=== PATIENT | male | born 1990 | race African-American/Black ===

== ENCOUNTER 2024-05-19 07:30 | Outpatient (RCR) | payer OTHER, SELFPAY ==
--- NOTE | 2024-05-03 10:39 | OT.OPPOC ---
Physical, Occupational & Speech Therapy At [facility] Dakota Feliz [id number] 1990 Visit Care Team Role Provider Type Henrry WARREN Provider Family Provider Non-Staff Primary Care Provider Address: Phone: Robin Felix Attending Provider Non-Staff Referring Provider Address: [address] [place] [address], [id number] Occupational Therapy Plan of Care OT Outpatient Adult Evaluation Start: 05/03/24 07:21 Freq: Status: Active Protocol: Document 05/03/24 08:15 USAMA (Rec: 05/03/24 07:44 USAMA [id number]) General Information - Adult Visit Information Visit Number 06/28 Plan of Care Dates 05/03/24 - 07/12/24 Insurance Information Prime, 12 visits authorized Session Time Visit Start Date 05/03/24 Visit Start Time 08:15 Visit Stop Time 09:00 Setting Treatment Setting Outpatient Care Visit Type Note Type Initial Evaluation Referral Referring Physician Robin Felix Reason for Referral Unspecified injury of extensor muscle, fascia and tendon of R middle finger Identification Identification Confirmed Yes Identification Confirmed By name, medical record Medical Information Medical History no significant Pmhx Patient Questionnaires Quick Dash- Upper Extremity Quick Dash UE Score 9.09 Quick Dash UE Impairment 1 to 19% Impaired (Score 1-19) Quick Dash- Work and Sports Modules Quick Dash W&S Score Work 18.75, Sport 25 Quick Dash Work and Sport Impairment 20 to 39% Impaired (Score 20- 39) Goals Objective Measurements Objective Measurements Architectural Administrative Assistant: R 64, 35, 41 (avg 46.7#) ; L 150, 145, 137 (avg 144#) Lateral: R 17#, L 20# Pincher: R 10#, L 18# 3 jaw: R 19#, L 24# AROM: 3rd digit +30 to 94 MP, 0 to 44 (53 passively) PIP, + 2 to 48 (50 passively) DIP Circumfrential edema measurements:R 3rd digit: at proximal end 6.3cm, 1/2 way between MP/PIP 6.4 cm, PIP 7. 1cm, 1/2 way between PIP/DIP 5 .7cm, DIP 5.4cm Treatment Treatment Issued and educated on HEP. HEP includes PROM to PIP, edema massage, and tendon glides Short Term Goals Short Term Goals 1. Pt will be I with initial HEP. 2. Pt will tolerated R passive PIP flexion to WFL for improved object manipulation. 3. Pt will increase R grey stock recorder strength to 75# to assist in work tasks. 4. Pt will increase all R pinch strengths by 3# or greater to assist in object manipulation Penitentiary Goals Fence Post Driver Goals 1. Pt will be I with advanced HEP 2. Pt will demonstrate AROM R 3rd digit to WFL for improved functional task performance. 3. Pt will increase R grey stock recorder strength to 100# to assist in work specific tasks. 4. Pt will report perceived functional improvments, rating PSFS at no more than 10 for Work/Sport components Assessment/Plan Assessment Patient Response Excellent Rehabilitation Potential Good Impairments Identified ADLs,Body Mechanics, Coordination/Dexterity, Flexibility,Functional Activities,Pain,Weakness, Posture,Range of Motion, Recreational Activities, Meaningful Activities, Stiffness Treatment Assessment Pt is 34 yo M referred to skilled OT services by due to R long finger central slip injury to PIP on 03/04/24. Per order, pt received non- operative therapy including full extension splinting with DIP free for 6 weeks initiated on 03/15/24. Pt is L hand dominant for hand writing but reports using typically using his R hand for other tasks. Pt has no significant pmhx per his reports. Pt reports he was doing a worked related PT exercise where he was holding a rope with knots in it. He slipped on the rope and continued to slide down a hill. When he stood, someone approached him to give him a high five, he looked down and realized his finger was dislocated. Pt went to the ED and had his finger approximated. Pt followed up with his PCM about a week later and was then issued the splint and received an x-ray. Pt reports he was told he had a partial fracture. 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 Pt uses tools such as ratchets and screw drivers. Pt reports he doesn?t lift more than 60#. Pt is currently in a limited duty status, so he has not been lifting or operating tools. Pt reports that initially after his injury he had a difficult time picking up his children, but now he is able to do so. Pt reports he continues to perform weightlifting but has had to modify how he is grasping the weights due to the splint. He is also unable to do any pull- ups. Pt reports no pain at rest and a 3/10 if he bumps his finger. Although pt is L handed, pt reports he would often use his R hand for most of his tasks. Pt has been splinted for 6 weeks. Pt's R 3rd digit is stiff and pt has somewhat guarded posture at rest. Pt demonstrates decreased functional use of L hand, decreased ROM, muscle weakness , increased swelling, decreased FMC, and impaired functional abilities BADL/IADL . Pt appears motivated to participate in skilled services. Skilled OT services are appropriate to address these deficits and promote return toward PLOF. Home Exercise Program Issued and educated on HEP. HEP includes PROM to PIP, edema massage, and tendon glides Plan Length of treatment (weeks) 10 Plan of Care Start Date 05/03/24 Plan of Care End Date 07/12/24 Treatment Frequency Twice a Week Treatment Duration 45 Minutes Therapeutic Contents Active Range of Motion,Client Education,Functional Activities,Home Exercise Program,Joint Protection, Manual Therapy,Education, Neuromuscular Re-Education, Self-Care,Splinting,Stretching /Flexibility Activities, Therapeutic Activities, Therapeutic Exercises, Modalities Types of Modalities Contrast Bath,Other Additional Types of Modalities PB, MHP, CP Patient Instruction Home Exercise Program,Plan of Care,Questions/Concerns Functional Wrist/Hand Scan Hand Side Sensory Assessment Sensory Profile2 Electronically Signed by: Alicia Bowen OT 05/03/24 5529 If you are in agreement with this Plan of Care, please return a signed and dated copy. I have reviewed this Plan of Care and certify that the skilled therapy services above are required to meet the patient?s needs. Physician Signature Date Printed Name and Credentials Clinical Instructor Signature Printed Name and Credentials
--- NOTE | 2024-05-05 11:02 | OT.OP.TRT ---
Visit Care Team Role Provider Type Henrry BRIANA Provider Family Provider Non-Staff Primary Care Provider Specialty: Medical Address: Phone: Email: Robin Felix Attending Provider Non-Staff Referring Provider Specialty: Orthopedic Surgery Address: [facility] [place], [address] Email: Occupational Therapy Treatment Note OT Outpatient Treatment Note - Adult Start: 05/03/24 07:21 Freq: Status: Active Protocol: Document 05/05/24 09:00 USAMA (Rec: 05/05/24 09:20 USAMA [id number]) OT Outpatient Adult Treatment Note Session Time Visit Start Date 05/05/24 Visit Start Time 09:00 Visit Stop Time 09:40 Visit Information Visit Number 07/29 Plan of Care Dates 05/03/24 - 07/12/24 Insurance Information Prime, 12 visits authortized Setting Treatment Setting Outpatient Care Visit Type Note Type Treatment Note - Subjective Identification Type Name Identification Reconciled With Medical Record Observations It's just stiff and I keep trying to work. Pt reports pain at worse during tx at 6-7 /10 during PROM and at end of tx. Chief Complaint(s) Loss of Motion/Stiffness,Pain Effect on Activity - Objective Short Term Goals 1. Pt will be I with initial HEP. 2. Pt will tolerate R passive PIP flexion to WFL for improved object manipulation. 3. Pt will increase R tool die maker strength to 75# to assist in work tasks. 4. Pt will increase all R pinch strengths by 3# or greater to assist in object manipulation. Panel Gluer Goals 1. Pt will be I with advanced HEP. 2. Pt will demonstrate AROM R 3rd digit to WFL for improved functional task performance. 3. Pt will increase R tool die maker strength to 100# to assist in work specific task. 4. Pt will report perceived functional improvements, rating PSFS at no more than 10 for Work/Sport components. - Treatment 1 Descriptor PB for improved extensibility Exercises 2 Descriptor tendon glides in available ROM x 15 1 Descriptor digit blocking flex and ext PIP x15 reps Manual Therapy Manual Therapy STM at 3rd PIP, PROM 3rd PIP and DIP flex and ext as tolerated with extended holds, composite flexion with extended holds as tolerated. retrograde massage 3rd digit - Assessment Patient Response to Treatment Excellent Rehabilitation Potential Good Impairments Identified ADLs,Body Mechanics, Coordination/Dexterity, Flexibility,Functional Activities,Pain,Weakness, Posture,Range of Motion, Recreational Activities, Meaningful Activities, Stiffness Assessment of Improvement Pt tolerated PROM with extended holds well today both for PIP and composite flexion . Pt demonstrates tendon glides with good form in available ROM. OT encourages pt to elevate his hand when possible to encourage reduction of edema along with retrograde massage he is performing. Pt is agreeable to doing so. Pt making progress per established POC. Cont per POC. Reviewed with Patient/Caregiver Goals,Progress Being Made,Home Exercise Program Patient/Caregiver Understanding Excellent - Plan Therapy Recommendations Continue with Current Program Amount of Therapy Recommended 2-3 Months Frequency of Treatment Twice a Week Length of Session 45 Minutes Therapeutic Contents Active Range of Motion,Client Education,Functional Activities,Home Exercise Program,Joint Protection, Manual Therapy,Education, Neuromuscular Re-Education, Self-Care,Splinting,Stretching /Flexibility Activities, Therapeutic Activities, Therapeutic Exercises, Modalities Types of Modalities Contrast Bath Additional Types of Modalities PB, MHP, CP
--- NOTE | 2024-05-12 08:41 | OT.OP.TRT ---
Visit Care Team Role Provider Type Henrry BRIANA Provider Family Provider Non-Staff Primary Care Provider Specialty: Medical Address: Phone: Email: Robin Felix Attending Provider Non-Staff Referring Provider Specialty: Orthopedic Surgery Address: [facility] [place], [address] Email: Occupational Therapy Treatment Note OT Outpatient Treatment Note - Adult Start: 05/03/24 07:21 Freq: Status: Active Protocol: Document 05/12/24 07:28 USAMA (Rec: 05/12/24 08:40 USAMA [id number]) OT Outpatient Adult Treatment Note Session Time Visit Start Date 05/12/24 Visit Start Time 07:30 Visit Stop Time 08:15 Visit Information Visit Number 08/26 Plan of Care Dates 05/03/24 - 07/12/24 Insurance Information Prime, 12 visits authortized Setting Treatment Setting Outpatient Care Visit Type Note Type Treatment Note - Subjective Identification Type Name Identification Reconciled With Medical Record Observations Pt reports he is stretching his digit at least once an hour. Pt has no new complaints. Chief Complaint(s) Loss of Motion/Stiffness,Pain Effect on Activity - Objective Short Term Goals 1. Pt will be I with initial HEP. MET 05/12/24 2. Pt will tolerate R passive PIP flexion to WFL for improved object manipulation. 3. Pt will increase R client application support specialist strength to 75# to assist in work tasks. 4. Pt will increase all R pinch strengths by 3# or greater to assist in object manipulation. Shelter Goals 1. Pt will be I with advanced HEP. 2. Pt will demonstrate AROM R 3rd digit to WFL for improved functional task performance. 3. Pt will increase R client application support specialist strength to 100# to assist in work specific task. 4. Pt will report perceived functional improvements, rating PSFS at no more than 10 for Work/Sport components. - Treatment 1 Descriptor PB for improved extensibility Exercises 3 Descriptor strengthening: tputty (red) gross client application support specialist, claw fist, tip pinch, finger extension with putty loop 2 Descriptor tendon glides in available ROM x 15 1 Descriptor digit blocking flex and ext PIP x15 reps Manual Therapy Manual Therapy STM at 3rd PIP, PROM 3rd PIP and DIP flex and ext as tolerated with extended holds, composite flexion with extended holds as tolerated. retrograde massage 3rd digit - Assessment Patient Response to Treatment Excellent Rehabilitation Potential Good Impairments Identified ADLs,Body Mechanics, Coordination/Dexterity, Flexibility,Functional Activities,Pain,Weakness, Posture,Range of Motion, Recreational Activities, Meaningful Activities, Stiffness Progress Towards Goals Excellent Progress Assessment of Overall Progress Improving Assessment of Improvement Pt is pleasant and cooperative and appears to be very motivated to improve. Pt demonstrates improved tolerance of PROM. Pt is I with initial HEP. OT educated pt on strengthening exercises with tputty. Pt issued red tputty for home use. Cont per established POC. Reviewed with Patient/Caregiver Goals,Progress Being Made,Home Exercise Program Patient/Caregiver Understanding Excellent - Plan Therapy Recommendations Continue with Current Program Amount of Therapy Recommended 2-3 Months Frequency of Treatment Twice a Week Length of Session 45 Minutes Therapeutic Contents Active Range of Motion,Client Education,Functional Activities,Home Exercise Program,Joint Protection, Manual Therapy,Education, Neuromuscular Re-Education, Self-Care,Splinting,Stretching /Flexibility Activities, Therapeutic Activities, Therapeutic Exercises, Modalities Types of Modalities Contrast Bath Additional Types of Modalities PB, MHP, CP
--- NOTE | 2024-05-19 08:15 | OT.OP.TRT ---
Visit Care Team Role Provider Type Henrry BRIANA Provider Family Provider Non-Staff Primary Care Provider Specialty: Medical Address: Phone: Email: Robin Felix Attending Provider Non-Staff Referring Provider Specialty: Orthopedic Surgery Address: [facility] [place], [address] Email: Occupational Therapy Treatment Note OT Outpatient Treatment Note - Adult Start: 05/03/24 07:21 Freq: Status: Active Protocol: Document 05/19/24 07:29 USAMA (Rec: 05/19/24 08:15 USAMA [id number]) OT Outpatient Adult Treatment Note Session Time Visit Start Date 05/19/24 Visit Start Time 07:30 Visit Stop Time 08:05 Visit Information Visit Number 09/26 Plan of Care Dates 05/03/24 - 07/12/24 Insurance Information Prime, 12 visits authortized Setting Treatment Setting Outpatient Care Visit Type Note Type Treatment Note - Subjective Identification Type Name Identification Reconciled With Medical Record Observations Pt reports I have been released as fit for full duty, so today will be my last day. Pt reports having some tightness. Chief Complaint(s) Loss of Motion/Stiffness,Pain Effect on Activity - Objective Objective Measurements Billiard Parlor Manager: R 125#, 140#, 125# (avg 130#) Lateral: R 21#, Pincher: R 12# 3 jaw: R 23# AROM: 3rd digit +30 to 100 MP, 0 to 91 PIP, 0 to 60 (50 passively) DIP Circumferential edema measurements:R 3rd digit: at proximal end 6.6cm, 1/2 way between MP/PIP 6.7 cm, PIP 7. 5cm, 1/2 way between PIP/DIP 5 .9cm, DIP 5.4cm QuickDash 0, QuickDash Work 0, QuickDash Sport 0 Short Term Goals 1. Pt will be I with initial HEP. MET 05/12/24 2. Pt will tolerate R passive PIP flexion to WFL for improved object manipulation. MET 05/19/24 3. Pt will increase R print line inspector strength to 75# to assist in work tasks. MET 05/19/24 4. Pt will increase all R pinch strengths by 3# or greater to assist in object manipulation. PARTIALLY MET Head Rigger Goals 1. Pt will be I with advanced HEP. MET 05/19/24 2. Pt will demonstrate AROM R 3rd digit to WFL for improved functional task performance. MET 05/19/24 3. Pt will increase R print line inspector strength to 100# to assist in work specific task. MET 4. Pt will report perceived functional improvements, rating PSFS at no more than 10 for Work/Sport components. MET 05/19/24 - Exercises 3 Descriptor strengthening: pt demonstrates I with tputty HEP 2 Descriptor pt demonstrates I with tendon glides Manual Therapy Manual Therapy retrograde massage to 3rd digits followed by active movement - Assessment Patient Response to Treatment Excellent Rehabilitation Potential Excellent Impairments Identified ADLs,Body Mechanics, Coordination/Dexterity, Flexibility,Functional Activities,Pain,Weakness, Posture,Range of Motion, Recreational Activities, Meaningful Activities, Stiffness Progress Towards Goals Excellent Progress Assessment of Overall Progress Improving Assessment of Improvement Pt tolerated tx well today, demonstrating improved ROM and strength, I with HEPs, and tolerating retrograde massage. D/C from skilled OT services. Reviewed with Patient/Caregiver Goals,Progress Being Made,Home Exercise Program Patient/Caregiver Understanding Excellent - Plan Therapy Recommendations Discharge to Home Exercise Program
--- NOTE | 2024-05-19 08:16 | OT.OP.DC ---
Visit Care Team Role Provider Type [facility]ai[facility] WARREN Provider Family Provider Non-Staff Primary Care Provider Address: Phone: Email: Robin Felix Attending Provider Non-Staff Referring Provider Address: [address] [place], [address] Email: OT Outpatient OT Outpatient Adult Evaluation Start: 05/03/24 07:21 Freq: Status: Active Protocol: Document 05/03/24 08:15 USAMA (Rec: 05/03/24 07:44 [id number] General Information - Adult Visit Information Visit Number 06/28 Plan of Care Dates 05/03/24 - 07/12/24 Insurance Information Prime, 12 visits authorized Session Time Visit Start Date 05/03/24 Visit Start Time 08:15 Visit Stop Time 09:00 Setting Treatment Setting Outpatient Care Visit Type Note Type Initial Evaluation Referral Referring Physician Robin Felix Reason for Referral Unspecified injury of extensor muscle, fascia and tendon of R middle finger Identification Identification Confirmed Yes Identification Confirmed By name, medical record Medical Information Medical History no significant Pmhx Patient Questionnaires Quick Dash- Upper Extremity Quick Dash UE Score 9.09 Quick Dash UE Impairment 1 to 19% Impaired (Score 1-19) Quick Dash- Work and Sports Modules Quick Dash W&S Score Work 18.75, Sport 25 Quick Dash Work and Sport Impairment 20 to 39% Impaired (Score 20- 39) Goals Objective Measurements Objective Measurements Manager Data Warehouse: R 64, 35, 41 (avg 46.7#) ; L 150, 145, 137 (avg 144#) Lateral: R 17#, L 20# Pincher: R 10#, L 18# 3 jaw: R 19#, L 24# AROM: 3rd digit +30 to 94 MP, 0 to 44 (53 passively) PIP, + 2 to 48 (50 passively) DIP Circumfrential edema measurements:R 3rd digit: at proximal end 6.3cm, 1/2 way between MP/PIP 6.4 cm, PIP 7. 1cm, 1/2 way between PIP/DIP 5 .7cm, DIP 5.4cm Treatment Treatment Issued and educated on HEP. HEP includes PROM to PIP, edema massage, and tendon glides Short Term Goals Short Term Goals 1. Pt will be I with initial HEP. 2. Pt will tolerated R passive PIP flexion to WFL for improved object manipulation. 3. 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 4. Pt will increase all R pinch strengths by 3# or greater to assist in object manipulation Penitentiary Goals Penitentiary Goals 1. Pt will be I with advanced HEP 2. Pt will demonstrate AROM R 3rd digit to WFL for improved functional task performance. 3. Pt will increase R marking room supervisor strength to 100# to assist in work specific tasks. 4. Pt will report perceived functional improvments, rating PSFS at no more than 10 for Work/Sport components Assessment/Plan Assessment Patient Response Excellent Rehabilitation Potential Good Impairments Identified ADLs,Body Mechanics, Coordination/Dexterity, Flexibility,Functional Activities,Pain,Weakness, Posture,Range of Motion, Recreational Activities, Meaningful Activities, Stiffness Treatment Assessment Pt is 34 yo M referred to skilled OT services by due to R long finger central slip injury to PIP on 03/04/24. Per order, pt received non- operative therapy including full extension splinting with DIP free for 6 weeks initiated on 03/15/24. Pt is L hand dominant for hand writing but reports using typically using his R hand for other tasks. Pt has no significant pmhx per his reports. Pt reports he was doing a worked related PT exercise where he was holding a rope with knots in it. He slipped on the rope and continued to slide down a hill. When he stood, someone approached him to give him a high five, he looked down and realized his finger was dislocated. Pt went to the ED and had his finger approximated. Pt followed up with his PCM about a week later and was then issued the splint and received an x-ray. Pt reports he was told he had a partial fracture. 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 Pt uses tools such as ratchets and screw drivers. Pt reports he doesn?t lift more than 60#. Pt is currently in a limited duty status, so he has not been lifting or operating tools. Pt reports that initially after his injury he had a difficult time picking up his children, but now he is able to do so. Pt reports he continues to perform weightlifting but has had to modify how he is grasping the weights due to the splint. He is also unable to do any pull- ups. Pt reports no pain at rest and a 3/10 if he bumps his finger. Although pt is L handed, pt reports he would often use his R hand for most of his tasks. Pt has been splinted for 6 weeks. Pt's R 3rd digit is stiff and pt has somewhat guarded posture at rest. Pt demonstrates decreased functional use of L hand, decreased ROM, muscle weakness , increased swelling, decreased FMC, and impaired functional abilities BADL/IADL . Pt appears motivated to participate in skilled services. Skilled OT services are appropriate to address these deficits and promote return toward PLOF. Home Exercise Program Issued and educated on HEP. HEP includes PROM to PIP, edema massage, and tendon glides Plan Length of treatment (weeks) 10 Plan of Care Start Date 05/03/24 Plan of Care End Date 07/12/24 Treatment Frequency Twice a Week Treatment Duration 45 Minutes Therapeutic Contents Active Range of Motion,Client Education,Functional Activities,Home Exercise Program,Joint Protection, Manual Therapy,Education, Neuromuscular Re-Education, Self-Care,Splinting,Stretching /Flexibility Activities, Therapeutic Activities, Therapeutic Exercises, Modalities Types of Modalities Contrast Bath,Other Additional Types of Modalities PB, MHP, CP Patient Instruction Home Exercise Program,Plan of Care,Questions/Concerns Functional Wrist/Hand Scan Hand Side Sensory Assessment Sensory Profile2 OT Outpatient Treatment Note - Adult Start: 05/03/24 07:21 Freq: Status: Active Protocol: Document 05/19/24 07:29 USAMA (Rec: 05/19/24 08:15 USAMA [id number]) OT Outpatient Adult Discharge Note Session Time Visit Start Date 05/19/24 Visit Start Time 07:30 Visit Stop Time 08:05 Visit Information Visit Number 4 Plan of Care Dates 05/03/24 - 07/12/24 Insurance Information [facility] Prime, 12 visits authortized Setting Treatment Setting Outpatient Care Visit Type Note Type Discharge Note - Subjective Identification Type Name Identification Reconciled With Medical Record Observations Pt reports I have been released as fit for full duty, so today will be my last day. Pt reports having some tightness. Chief Complaint(s) Loss of Motion/Stiffness,Pain Effect on Activity - Objective Objective Measurements Manager Data Warehouse: R 125#, 140#, 125# (avg 130#) Lateral: R 21#, Pincher: R 12# 3 jaw: R 23# AROM: 3rd digit +30 to 100 MP, 0 to 91 PIP, 0 to 60 (50 passively) DIP Circumferential edema measurements:R 3rd digit: at proximal end 6.6cm, 1/2 way between MP/PIP 6.7 cm, PIP 7. 5cm, 1/2 way between PIP/DIP 5 .9cm, DIP 5.4cm QuickDash 0, QuickDash Work 0, QuickDash Sport 0 Short Term Goals 1. Pt will be I with initial HEP. MET 05/12/24 2. Pt will tolerate R passive PIP flexion to WFL for improved object manipulation. MET 05/19/24 3. 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 MET 05/19/24 4. Pt will increase all R pinch strengths by 3# or greater to assist in object manipulation. PARTIALLY MET Penitentiary Goals 1. Pt will be I with advanced HEP. MET 05/19/24 2. Pt will demonstrate AROM R 3rd digit to WFL for improved functional task performance. MET 05/19/24 3. Pt will increase R marking room supervisor strength to 100# to assist in work specific task. MET 4. Pt will report perceived functional improvements, rating PSFS at no more than 10 for Work/Sport components. MET 05/19/24 - Assessment Patient Response to Treatment Excellent Rehabilitation Potential Excellent Impairments Identified ADLs,Body Mechanics, Coordination/Dexterity, Flexibility,Functional Activities,Pain,Weakness, Posture,Range of Motion, Recreational Activities, Meaningful Activities, Stiffness Progress Towards Goals Excellent Progress Assessment of Overall Progress Improving Assessment of Improvement Pt has been pleasant and cooperative throughout treatment sessions with skilled OT services. Pt has appeared to be highly motivated and has demonstrated I with initial and advanced HEP. Pt reports being returned to fit for duty and work and desires to be d/c from skilled OT services at this time. Pt demonstrates WFL to WNL limits for AROM of R 3rd digit, marking room supervisor strength, and pinch strength. Pt has somewhat increased swelling, but is I with methods for managing this moving forward. Pt has improved perceived function to that of no deficit with respect to the QuickDash and QuickDash Work/Sport. See objective section of note for additional details. Pt is appropriate to d/c to HEP at this time. D/C from skilled OT services. Reviewed with Patient/Caregiver Goals,Progress Being Made,Home Exercise Program Patient/Caregiver Understanding Excellent - Plan Therapy Recommendations Discharge to Home Exercise Program
== END 2024-05-26 15:23 | disposition home or self-care (01) ==
LOC: OT 07:30
PROVIDERS: Referring Provider Student in an Organized Health Care Education/Training Program; Visit Provider Student in an Organized Health Care Education/Training Program
DX: S66.302A Unspecified injury of extensor muscle, fascia and tendon of right middle finger at wrist and hand level, initial encounter (principal)
CPT/HCPCS: 97018; 97110; 97140; 97165